=== PATIENT | female | born 1965 | race African-American/Black ===

== ENCOUNTER 2020-09-30 19:10 | Emergency (ER) | payer OTHER ==
[2020-09-30] MEDS ORDERED: KETOROLAC 60 MG/2 ML VIAL IM STA (20:02)
[2020-09-30] MEDS ORDERED: CHERRY SYRUP 10 ML UDC PO ONE (20:03)
[2020-09-30] MEDS ORDERED: DEXAMETHASONE 10 MG/ML VIAL PO STA (20:03)
--- NOTE | 2020-09-30 20:05 | ED Physician Documentation ---
PD HPI NECK PAIN - Stated complaint Stated Complaint: BACK PAIN - Chief complaint Chief Complaint: General - History obtained from History obtained from: Patient - History of Present Illness Timing - onset: Yesterday Timing - duration: Days (1) Timing - details: Abrupt onset, Still present Location: Upper, Lower Quality: Pain, Spasm, Sharp Associated symptoms: No: Fever, Weakness, Numbness, Incontinent of urine, Unable to urinate, Hematuria, Incontinent of stool Improves with: Rest, Position, Meds Worsened by: Movement Contributing factors: Other (work related incident yesterday) Similar symptoms before: Has not had sx before Recently seen: Other ([facility]) - Additional information Additional information: 54-year-old female with a history of hypertension 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 She states that she wrenched her neck with this and at first her pain was not bad. She was ev aluated at the [employer]. She subsequently has had some more pain and stiffness. She was asked by her supervisor dumping to be evaluated for this injury. 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 She works multiple shifts. Review of Systems Constitutional: denies: Fever Eyes: denies: Decreased vision Ears: denies: Ear pain Nose: denies: Congestion Throat: denies: Sore throat Cardiac: denies: Chest pain / pressure, Palpitations Respiratory: denies: Dyspnea, Cough GI: denies: Abdominal Pain, Nausea, Vomiting, Constipation, Diarrhea : denies: Dysuria, Frequency PD PAST MEDICAL HISTORY - Past Medical History Past Medical History: Yes Cardiovascular: Hypertension, High cholesterol - Past Surgical History Past Surgical History: Yes - Present Medications Home Medications: Ambulatory Orders Medication Instructions Recorded Confirmed Aspirin [[place] Aspirin] 81 mg PO DAILY 09/30/20 09/30/20 Cyclobenzaprine [Flexeril] 10 mg PO TID PRN #20 tablet 09/30/20 HYDROcod/ACETAM 5/325 [Center 5/325] 1 - 2 ea PO Q6H PRN #15 tablet 09/30/20 Metoprolol Succinate [Toprol Xl] 25 mg PO BID 09/30/20 09/30/20 Omeprazole 20 mg PO DAILY 09/30/20 09/30/20 hydroCHLOROthiazide 12.5 mg PO DAILY 09/30/20 09/30/20 [Hydrochlorothiazide] - Allergies Allergies/Adverse Reactions: Allergies Allergy/AdvReac Type Severity Reaction Status Date / Time No Known Drug Allergies Allergy Verified 09/30/20 19:26 - Social History Does the pt smoke?: No Smoking Status: Never smoker Does the pt drink ETOH?: No Does the pt have substance abuse?: No - Immunizations Immunizations are current?: Yes - POLST Patient has POLST: No PD ED PE NORMAL - Vitals Vital signs reviewed: Yes (hypertensive) - General General: Alert and oriented X 3, No acute distress, Well developed/nourished - HEENT HEENT: Atraumatic, PERRL, EOMI - Neck Neck: Supple, no meningeal sign, No bony TTP, Other (There is no midline bony tenderness to the cervical spine. There is tenderness to the paraspinous muscles of the lower cervical spine and of the upper lumbar paraspinous muscles. ) - Respiratory Respiratory: No respiratory distress - Back Back: No CVA TTP, No spinal TTP, Other (tenerness is to the paraspinous muscles of the upper lumbar spine no midline tenderness. ) - Derm Derm: Normal color, Warm and dry, No rash - Neuro Neuro: Alert and oriented X 3, resident care manager 2-12 intact, No motor deficit, No sensory deficit, Normal speech Eye Opening: Spontaneous Motor: Obeys Commands Verbal: Oriented GCS Score: 15 - Psych Psych: Normal mood, Normal affect Results - Vitals Vitals: Vital Signs - 24 hr 09/30/20 09/30/20 19:22 19:29 Temperature 35.8 C L 35.8 C L Heart Rate 75 75 Respiratory 16 16 Rate Blood Pressure 185/95 H 185/95 H O2 Saturation 97 97 Oxygen O2 Source Room air PD MEDICAL DECISION MAKING - ED course Complexity details: considered differential, d/w patient ED course: 54-year-old female has wrenched her neck at work she was wearing a hard hat when someone heavy stepped on her head and she does not have any bony point tenderness along her entire spine. She does have pain to the paraspinous muscles and I suspect this injury is related to myofascial strain. She is administered dexamethasone 10 mg and Toradol [address] will place her on a course of Center and Flexeril and place her on light duty. I have instructed the patient to use ice and stretch and to avoid using a heating pack. We will refer her to the community clinic for follow-up if she does not have improvement. I have indicated the patient to expect improvement in 2 to 5 days Departure - Departure Disposition: Home, Self Care Clinical Impression: Cervical myofascial strain Qualifiers: Encounter type: initial encounter Qualified Code(s): S16.1XXA - Strain of muscle, fascia and tendon at neck level, initial encounter Condition: Stable Instructions: ED Sprain Strain Neck Follow-Up: [facility] [Provider Group] Prescriptions: Cyclobenzaprine [Flexeril] 10 mg PO TID PRN #20 tablet PRN Reason: Spasms HYDROcod/ACETAM 5/325 [Center 5/325] 1 - 2 ea PO Q6H PRN #15 tablet PRN Reason: Pain Comments: Today it appears this injury you have had at work has led to some myofascial strain and this usually will resolve in 2 to 5 days. If you have worsening of your symptoms or development of new symptoms follow-up with the clinic as recommended. Forms: Activity restrictions
[2020-09-30 20:19] VITALS: BP 150/91
== END 2020-09-30 20:18 | disposition home or self-care (01) ==
LOC: ED 19:10
DX: S16.1XXA Strain of muscle, fascia and tendon at neck level, initial encounter (principal); X58.XXXA Exposure to other specified factors, initial encounter; Y93.39 Activity, other involving climbing, rappelling and jumping off; Y92.69 Other specified industrial and construction area as the place of occurrence of the external cause; Y99.0 Civilian activity done for income or pay; I10 Essential (primary) hypertension
CPT/HCPCS: 1040M; 96372; 99283; 99284; A9270